=== PATIENT | male | born 1945 | race Caucasian/White ===

== ENCOUNTER → 2018-11-22 | Outpatient (CLI) | payer MEDICARE ==
[~2018-11-22] MED LIST: ALLO300T PO; AMLO10TA8 PO; ATOR40TA PO; DABI150C PO; LISI40TA PO; METO50TA82 PO; OMNIPAQUE 350 MG/ML, 150 ML BOTTLE ONE; PREG50CA PO; SOTA80TA18 PO
== END | disposition home or self-care (01) ==
LOC: CFH 12:17
PROVIDERS: ATTEND Internal Medicine Cardiovascular Disease
DX: Z01.818 Encounter for other preprocedural examination (principal); I48.91 Unspecified atrial fibrillation
CPT/HCPCS: 71046; 75572; Q9967